=== PATIENT | male | born 1980 | race Caucasian/White ===

== ENCOUNTER 2019-11-14 04:00 | Observation (INO) | payer OTHER, SELFPAY ==
[2019-11-14] VITALS (12 sets, daily range): BP systolic 101–143; BP diastolic 64–89; PULSE 60–110; RESP 14–18; TEMP 36.2–37.4; O2SAT 94–99; BMI 24.3; BMI 24.4
--- NOTE | 2019-11-14 04:06 | CT_ITS ---
STUDY: CT ABDOMEN AND PELVIS WITH CONTRAST REASON FOR EXAM: Male, 39 years old. EPIGASTRIC PAIN AFTER DINNER LAST NIGHT,ELEVATED WBC -- HX:CEREBRAL PALSY RADIATION DOSAGE (If Supplied By Facility): CTDIvol = ( 15.69 ) mGy, DLP = ( 590.99 ) mGycm TECHNIQUE: Transaxial images were obtained from the dome of the diaphragm to the symphysis pubis without oral contrast. IV 100mL Isovue-300 was administered. Sagittal and coronal images were reconstructed. Individualized dose optimization techniques were used for this CT. COMPARISON: None. FINDINGS: The visualized lung bases are unremarkable. The visualized portions of the heart are within normal limits. There is minimal periportal edema. Normal gallbladder and extrahepatic biliary system. There is a 6.6 mm splenic cyst. Normal pancreas. Normal bilateral adrenal glands. There is a right renal cyst measuring 4.2 mm. Normal left kidney. There is a small hiatal hernia. Normal small intestine. There is moderate stool in the colon. The appendix is elongated and distended with multiple appendicoliths. It measures up to 1.0 cm. There are at least 3 appendicoliths demonstrated the largest of which measures 8.8 x 0.6 cm. Is mild surrounding edema. Normal abdominal aorta. Normal inferior vena cava. Normal retroperitoneum. Bladder is distended. There is mild to moderate enlargement appearance of the prostate. Prostate measures 5.7 x 4.2 cm. Normal abdominal wall. There is disc space narrowing L5-S1. There is mild multilevel spondylosis CT/Abdomen/Pelvis W IV Cont ONLY IMPRESSION: Distended appendix with multiple appendicoliths with mild surrounding edema, highly suspicious for acute appendicitis. Constipation. Right renal cyst 4.2 mm. Mild to moderate enlargement of the prostate with inhomogeneity recommend consideration for follow-up prostate laboratory values and clinical exam when appropriate. N.B. : The above information has been verbally conveyed by Beronica Brown MD to Loyd Cordero MD, on 11/14/2019 05:45:13 (ET). Electronically Signed: Beronica Brown MD at 5:46 EDT Tel , Service support ,
--- NOTE | 2019-11-14 04:06 | ED.VIS.GEN ---
History of Present Illness Chief Complaint: Abd Pain Informant: Patient Onset: Today Context: Sudden Onset Timing: Continuous Current Severity: Moderate Maximum Severity: Severe Narrative: The patient is a 39-year-old male with medical history significant for prior hiatal hernia who presents to the emergency department epigastric abdominal pain, nausea, and vomiting. Patient states that his pain began about 10 PM. He states he ate and shortly after began to get a gnawing pain in his midepigastric area. Throughout the night, the pain worsened. He was nauseated and had an episode of vomiting. He states it did not change the pain. He denies any fevers or chills. He has no history of prior abdominal surgery. He denies history of pancreatitis. He has no history of alcohol use. He is not found anything that improve the pain. Prior similar symptoms: No Recent Illness/Hospitalization: No Past Medical History - Allergies and Home Meds Allergies/Adverse Reactions: Allergies No Known Allergies Allergy (Verified 11/14/19 04:11) Prior records reviewed: Yes Past Medical History: None Surgical History: noncontributory Review of Systems General: Denies: Chills, Fever, Sweats Eyes: Denies: Visual changes - bilaterally, Diplopia ENT: Denies: Rhinorrhea, Sore throat Cardiovascular: Denies: Chest pain, Palpitations Respiratory: Denies: Dyspnea, Cough, Dyspnea on exertion Gastrointestinal: Reports: Abdominal pain, Nausea, Vomiting. Denies: Diarrhea, Melena, Hematochezia Genitourinary: Denies: Dysuria, Hematuria, Frequency Musculoskeletal: Denies: Back pain, Extremity Pain Skin: Denies: Rash, Wounds Neurological: Denies: Headache, Weakness, Numbness Physical Exam Vital Signs/Narrative: Vital Signs Temp Pulse Resp BP Pulse Ox 11/14/19 04:02 97.3 F L 72 16 143/89 H 98 Inital Vital Signs reviewed: Yes General: Well nourished, Well developed, No Acute Distress Head: Normocephalic, Atraumatic Eyes: Perrl, EOMI ENT: Moist mucous membranes, No rhinorrhea Neck: Supple, Nontender Cardiovascular: Regular rate, Regular rhythm, No murmurs Respiratory: No distress, CTA bilaterally, Chest nontender Abdomen: Soft, Nondistended, Normal bowel sounds, Tender. Negative for: Guarding, Rebound tenderness Back: Nontender, Normal Inspection Extremities: Nontender, No edema Skin: Normal color, No rash Neurological: Alert, Oriented x3, Cranial nerves II-XII grossly intact, Normal Strength, Normal Sensation Psychological: Normal affect, Normal Mood Diagnostic/Tx/Re-eval Clinical Impression(s) from Imaging Studies Abdomen/Pelvis CT 11/14/19 04:06 IMPRESSION: Distended appendix with multiple appendicoliths with mild surrounding edema, highly suspicious for acute appendicitis. Constipation. Right renal cyst 4.2 mm. Mild to moderate enlargement of the prostate with inhomogeneity recommend consideration for follow-up prostate laboratory values and clinical exam when appropriate. N.B. : The above information has been verbally conveyed by Beronica Brown MD to Loyd Cordero MD, on 11/14/2019 05:45:13 (ET). Electronically Signed: Beronica Brown MD at 5:46 EDT Tel , Service support , ADDENDUM: 11/14/19 0553 IMPRESSION: Distended appendix with multiple appendicoliths with mild surrounding edema, highly suspicious for acute appendicitis. Constipation. Right renal cyst 4.2 mm. Mild to moderate enlargement of the prostate with inhomogeneity recommend consideration for follow-up prostate laboratory values and clinical exam when appropriate. N.B. : The above information has been verbally conveyed by Beronica Brown MD to Loyd Cordero MD, on 11/14/2019 05:45:13 (ET). Electronically Signed: Beronica Brown MD at 5:46 EDT Tel , Service support , Abnormal Lab Results 11/14/19 11/14/19 04:10 04:10 WBC 14.3 H RBC 4.82 Hgb 14.3 Hct 41.3 MCV 85.7 MCH 29.7 MCHC 34.6 RDW Std Deviation 37.9 RDW Coeff of Alejandro 12.1 Plt Count 254 MPV 9.6 Immature Gran % (Auto) 0.300 Neut % (Auto) 85.9 H Lymph % (Auto) 7.4 L Emmons % (Auto) 5.9 Eos % (Auto) 0.4 Baso % (Auto) 0.1 Absolute Neuts (auto) 12.3 H Absolute Lymphs (auto) 1.06 Nucleated RBC % 0 Sodium 137 Potassium 3.5 Chloride 101 Carbon Dioxide 28.0 Anion Gap 8 BUN 15 Creatinine 0.89 Estim Creat Clear Calc 102.12 Est GFR (MDRD) Af Amer 121 Est GFR (MDRD) Non-Af 100 BUN/Creatinine Ratio 16.8 Glucose 148 H Calcium 8.9 Total Bilirubin 0.80 AST 20 ALT 33 Alkaline Phosphatase 47 Total Protein 7.6 Albumin 4.3 Globulin 3.3 Albumin/Globulin Ratio 1.3 Lipase 109 - Medical Decision Making Patient presents with acute abdominal pain. He points to his epigastric area, but he is also tender in his right lower quadrant with some voluntary guarding. IV was established. He was given analgesics with little improvement. I did obtain an EKG which is sinus rhythm without acute ischemia. Screening labs do show leukocytosis, but otherwise unremarkable. The patient underwent CT imaging which does show evidence of acute appendicitis. I did discuss this with surgery who is going to evaluate the patient. He is started on broad-spectrum antibiotics. I did order the rapid COVID test, but the patient outright refused. He states that he has no reason for this. I tried to explain to him that this would keep himself and staff safe, but he still refused the test. I obviously cannot force this on him. This was relayed to the staff. Impression 1. Acute abdominal pain 2. Acute appendicitis
[2019-11-14 04:15] LABS: Absolute Lymphocyte Count 1.06 X10^3/uL (0.83-4.51); Absolute Neutrophil Count 12.3 X10^3/uL (2.0-7.7); Basophil# 0.02 X10^3/uL; Basophil% 0.1 % (0-1); Eosinophil# 0.06 X10^3/uL; Eosinophils% 0.4 % (0-5); Hematocrit 41.3 % (40-54); Hemoglobin 14.3 g/dL (13.0-16.5); Lymphocyte # 1.06 X10^3/ul (4.0); Lymphocyte % 7.4 % (19-41); Mean Corp Hgb Conc 34.6 g/dL (32-36); Mean Corpuscular Hgb 29.7 pg (27.0-32.0); Mean Corpuscular Volume 85.7 fL (80-94); Mean Platelet Vol. 9.6 fl (6.2-12.0); Monocyte# 0.84 X10^3/uL; Monocyte% 5.9 % (0-10); NRBC Flagged by Analyzer 0 % (0-5); Neutrophil # 12.28 X10^3/uL (2.7-7.7); Neutrophil % 85.9 % (47-70); Platelet Count 254 K/mm3 (150-450); RBC Distribution Width CV 12.1 % (11.6-14.6); RBC Distribution Width SD 37.9 fl (35.1-43.9); Red Blood Count 4.82 M/mm3 (4.6-6.2); White Blood Count 14.3 K/mm3 (4.4-11.0)
[2019-11-14] MEDS: Ondansetron 4 MG/2 ML Vial IV ×2 (04:16→12:10)
[2019-11-14] MEDS: 0.9% Normal Saline 1,000 ML 1000 ML IV (04:16)
[2019-11-14] MEDS: Morphine 4 MG/ML Syringe IV ×2 (04:18→04:37)
[2019-11-14 04:33] LABS: ALB/GLOB Ratio 1.3 RATIO (0.9-2.4); AST(SGOT) 20 U/L (15-37); Alanine Aminotransfer ALT/SGPT 33 U/L (16-61); Albumin, Serum 4.3 g/dL (3.2-5.0); Alkaline Phosphatase 47 U/L (45-117); Anion Gap 8 (5-15); BUN 15 mg/dL (7-18); BUN/Creat Ratio 16.8 RATIO (10-20); Calcium,Total 8.9 mg/dL (8.5-10.1); Chloride 101 mmol/L (98-107); Creatinine, Serum 0.89 mg/dL (0.70-1.30); EST Glomerular Filtration Rate 100 mL/min (>60); Est Glom Filt Rate - Afr Amer 121 mL/min (>60); Estimated Creatinine Clearance 102.12 ml/min; Globulin 3.3 g/dL (2.2-4.2); Glucose 148 mg/dL (74-106); Lipase 109 U/L (73-393); Potassium 3.5 mmol/L (3.5-5.1); Protein, Total 7.6 g/dL (6.4-8.2); Sodium Level 137 mmol/L (136-145)
--- NOTE | 2019-11-14 04:50 | EKG12_ITS ---
Test Reason : ABD/ CP Blood Pressure : / mmHG Vent. Rate : 067 BPM Atrial Rate : 067 BPM P-R Int : 148 ms QRS Dur : 104 ms QT Int : 430 ms P-R-T Axes : 080 061 037 degrees QTc Int : 454 ms Normal sinus rhythm with sinus arrhythmia Normal ECG Confirmed by CRISTA CAZARES, MANDIE ([id number]), editor in chief newspaper [employer] ([id number]) on 11/17/2019 9:04:24 AM Referred By: CARLA Confirmed By:PIA TOBIN MD
[2019-11-14] MEDS: Famotidine 200 MG/20 ML MDV 20 MG in 0.9% Normal Saline (Pres. free 8 ML 300 MG IV (05:32)
[2019-11-14] MEDS: Dicyclomine 20 MG/2 ML Vial IM (05:33)
[2019-11-14] MEDS: HYDROmorphone 1 MG/ML Syringe IV (05:39)
--- NOTE | 2019-11-14 06:47 | HP.PCM_ITS ---
History of Present Illness Date of Admission: 11/14/19 The patient is a 39 year old M presents with epigastric pain to the ER and nausea and vomiting starting at suppertime yesterday got worse at midnight. Patient denies any diarrhea. CT abdomen pelvis was consistent with acute appendicitis with multiple appendicoliths in the appendix. Patient denies any history of surgery. Patient was curious about nonoperative treatment of appendicitis. Patient did receive views the COVID test for personal reasons. Past Medical History Allergies No Known Allergies Allergy (Verified 11/14/19 04:11) Surgical History: noncontributory Psychiatric History: No pertinent psych hx Lives: Spouse/ Significant Other Smoking Status: Never smoker - *Family History Maternal History Items: No pertinent history VTE Information - Inpt Only VTE Present on Admission: Yes VTE Mechan Device Prophylaxis: SCD's - Physical Exam Vitals/I&O's: Vital Signs Temp Pulse Resp BP Pulse Ox 99.4 F H 70 16 121/72 H 96 11/14/19 05:44 11/14/19 05:44 11/14/19 05:44 11/14/19 05:44 11/14/19 05:44 Oxygen Delivery Method Room Air Weight: 155 lb 10.342 oz Body Mass Index (BMI) 24.3 Intake and Output for Last 24 Hours 11/12/19 11/13/19 11/14/19 23:59 23:59 23:59 Intake Total 1110 / 1110 Balance 1110 / 1110 General: Alert, Oriented x3, Cooperative, No apparent distress HEENT: Atraumatic Lungs: Normal air movement Cardiovascular: Regular rate Abdomen: Soft, Non-Distended, Tender - Epigastric, positive Rovsing sign left lower quadrant, voluntary guarding, no rebound Extremities: No clubbing, No cyanosis, No edema Neurological: Cranial nerves II-XII grossly intact Psych/Mental Status: Normal Affect Laboratory Results 11/14/19 04:10: WBC 14.3 H, RBC 4.82, Hgb 14.3, Hct 41.3, MCV 85.7, MCH 29.7, M CHC 34.6, RDW Std Deviation 37.9, RDW Coeff of Alejandro 12.1, Plt Count 254, MPV 9.6, Immature Gran % (Auto) 0.300, Neut % (Auto) 85.9 H, Lymph % (Auto) 7.4 L, [place] % (Auto) 5.9, Eos % (Auto) 0.4, Baso % (Auto) 0.1, Absolute Neuts (auto) 12.3 H, Absolute Lymphs (auto) 1.06, Nucleated RBC % 0 // 04:10: Sodium 137, Potassium 3.5, Chloride 101, Carbon Dioxide 28.0, Anion Gap 8, BUN 15, Creatinine 0.89, Estim Creat Clear Calc 102.12, Est GFR (MDRD) Af Amer 121, Est GFR (MDRD) Non-Af 100, BUN/Creatinine Ratio 16.8, Glucose 148 H, Calcium 8.9, Total Bilirubin 0.80, AST 20, ALT 33, Alkaline Phosphatase 47, Total Protein 7.6, Albumin 4.3, Globulin 3.3, Albumin/Globulin Ratio 1.3, Lipase 109 Assessment/Plan 39-year-old male with acute appendicitis with appendicoliths 1. Discussed procedure laparoscopic appendectomy, possible open, possible bowel resection along with the risk but not limited to bleeding, infection/abscess, injury to another organ (small bowel, colon, etc.), adhesion, hernia at incision sites, and anesthesia. Patient stated that he would like to call someone prior to signing consent did not prefer to say who he was calling. Currently he denies having any questions about the procedure. Patient did refuse COVID test for personal reasons. Discussed with patient since he would need surgery even if the test was positive would plan to proceed with surgery. Mikayla Houser M.D. Pager: [phone] [facility] [address] [place] [address], [address] [place] [address] Office: [phone]
--- NOTE | 2019-11-14 07:59 | NURSING ---
Surgery laser beam cutter notified per Primary RN verbalized pt is refusing COVID testing.
[2019-11-14] MEDS: HYDROmorphone 0.5 MG/0.5 ML SYRINGE IV ×2 (09:49→11:57)
[2019-11-14] MEDS: 0.9% Saline Lock 10 ML Syringe IV ×4 (09:49→12:10)
[2019-11-14] MEDS: Lactated Ringers 1,000 ML 130 ML IV (09:57)
[2019-11-14] MEDS: Ketorolac 30 MG/ML Syringe IV (10:56)
--- NOTE | 2019-11-14 11:25 | APP_PTH ---
PATIENT: WAI WYNN LOC: MS3 U#:[id number] AGE/SX: 39/M ROOM: MS314 RE11/14/[address]: Dr. Mikayla Houser MD : 1980 BED: 1 DIS: 11/15/2019 SPEC #: [id number] RECD: 11/14/19 15:55 STATUS: DIANA REQ #: [id number] MARIAH: 11/14/19 11:[address]: Mikayla Houser DEPT: SURGICAL PATHOLOGY RECD BY: Allie Rojo ENTERED: 11/15/19 11:12 SP TYPE: APPENDIX OTHR DR: Dr. Guillaume Pham MD Tissues: Appendix, NOS Procedures: Surgery Specimen Level III HEADER OPERATION: Laparoscopic appendectomy PRE-OP DIAGNOSIS: Acute appendicitis with appendicolith TISSUE SUBMITTED: Appendix MICROSCOPIC DIAGNOSIS Appendix, appendectomy: Acute appendicitis and periappendicitis. FRANCES:cam 11/16/19 MICROSCOPIC DESCRIPTION Slides are reviewed. GROSS DESCRIPTION Received is one container labeled with the patient's name and designated appendix. The specimen consists of a J-shaped appendix measuring 13 cm in length and up to 1.5 cm in diameter. The attached periappendiceal adipose tissue measures up to 1.5 cm in width. No obvious perforation is identified. The serosal surface is covered with cruz, purulent exudate. The lumen contains fecal material mixed with purulent material. No fecalith is identified. [employer] sections are submitted in one cassette. / FRANCES:cam 11/15/19 TC:2 CPT: 41867
[2019-11-14 11:36] LABS: Bacteria 0 SEEN /hpf (None Seen); Mucous, Urine 0 SEEN /hpf (<or=2+); Red Blood Cells-Urine 0 SEEN /hpf (0-5); Squamous Epithelial Cells - UA 0 SEEN /hpf (0-5); White Blood Cells 0 SEEN /hpf (0-5)
[2019-11-14 11:41] LABS: Color, Urine Yellow (Yellow); Glucose, Dipstick 50 mg/dl (Normal); Leukocyte Esterase-Dipstick Negative /ul (Negative); Nitrite-Dipstick Negative (Negative); Occult Blood-Urine Negative /ul (Negative); Protein-Dipstick Negative (Negative); Urine Bilirubin Dipstick Negative (Negative); Urine Clarity Cloudy (Clear); Urine Urobilinogen Normal (Normal)
[2019-11-14 11:45] LABS: Ketone-Dipstick 150 mg/dl (Negative)
[2019-11-14 11:48] LABS: Amorphous Sediment 2+
[2019-11-14] MEDS: Bupiv/Epi 0.5% Mpf 30 ML Vial (14:00)
--- NOTE | 2019-11-14 14:45 | OP.PCM_ITS ---
Report of Operation Date of Procedure: 11/14/19 Pre-Operative Diagnosis: Acute appendicitis Post-Operative Diagnosis: Same Surgery/Procedure Performed:: Laparoscopic appendectomy Type of Anesthesia:: General/Supplemental Anesthesiologist: Diego Brown Special Medications: Zosyn 3.375 g IV x1 Specimen's removed: Appendix Estimated Blood Loss (mL): < 10 cc Fluids Replaced: 600 cc Description of Procedure: Indications: 39-year-old male presented to the ER with new right lower quadrant pain last night. On workup he was found to have acute appendicitis on CT and a leukocytosis of 14. Patient was started on antibiotics in the ER for acute appendicitis-Zosyn IV Description of the procedure: The patient was placed on operating table in supine position. General anesthesia was induced. A timeout was completed verifying correct patient, procedure, position and special equipment prior to be ginning procedure. Abdomen was prepped and draped in usual sterile fashion. Incision was made in the natural skin line above the umbilicus with a 15 blade scalpel. The fascia was elevated and incised. Entry into the peritoneum was confirmed visually and no bowel was noted in the vicinity of the incision. The Zavala trocar was placed under direct vision. Abdomen insufflated with a pressure of 12-15 mmHg. Patient tolerated insertion well. The scope was inserted and the abdomen inspected. No injuries from initial trocar placement were noted. Minimal amount of fluid was seen in the right lower quadrant. An direct visualization 2 -5 mm trocars were placed one above the symphysis pubis and below the hairline and one in the left lower quadrant lateral to the rectus muscle. Care is taken to avoid injury to the bladder and inferior epigastric vessels. The table was placed in Trendelenburg position with the right side elevated. The appendix was grasped with atraumatic grasper and elevated. It was noted to be inflamed with purulent exudate. A window was developed in the mesoappendix at the point between the base of the appendix and the cecum. An endoscopic 45 mm linear cutting stapler blue load was then used to divide and staple the base of the appendix. Enseal was used to divide the mesoappendix The appendix was withdrawn into the Zavala trocar after being placed en doscopically retrieval bag. Appendix was sent to pathology. The appendiceal stump was then irrigated and hemostasis was assured. Fluid was suctioned no other pathology was identified. Secondary trochars were removed under direct visualization. No bleeding was noted trocar sites. The laparoscope withdrawn and the umbilical trocar removed. The abdomen was allowed to collapse. Local anesthesia of 15 mL of 0.5% Marcaine was used at the incision sites. The umbilical trocar site was closed with the [id number] 0 Vicryl suture. The skin was closed up to clear sutures of 4-0 Monocryl and Steri-Strips. The patient was extubated. The patient tolerated the procedure well and was taken to the postanesthesia care unit in satisfactory condition. - Complications none - Admit VTE Documentation VTE Present on Admission: Yes VTE Mechan Device Prophylaxis: SCD's
--- NOTE | 2019-11-14 14:48 | DCINST_ITS ---
Discharge Diet: Light diet - advance as tolerated Discharge Activity: May not drive while taking narcotic pain medications. May shower in (days): 1 Lifting Restrictions: No lifting greater than 20 pounds x 2 weeks no strenuous exercise for 5 wks Call your doctor if your incision/area has: Continuous Slow Oozing, Sudden Increased Bleeding, Increased Pain/ Swelling, Increased Redness, Foul Smelling Discharge, Swelling at the incision site Call your doctor if you observe: Fever of 101 or Higher Remove Dressing in (days):: 1 - Okay to remove OpSite tomorrow after shower, Steri-Strips will stay on for 7 to 10 days with plan to follow-up in 10 days okay to remove Additional Instructions: Okay to take ibuprofen 400-600 mg PO q6hr PRN along with the Percocet. Avoid Tylenol since there is already Tylenol in the Percocet. Take all pain meds with food. Percocet can cause constipation recommend taking daily stool softener (i.e. Colace/docusate) while taking the pain meds. Recommend starting some MiraLAX in 1 to 2 days if no bowel movement. If still no bowel movement the following day recommend taking magnesium citrate half the bottle and waiting 4-6 hours if still no results take the other half the bottle. Medications to take at Discharge Oxycodone HCl/Acetaminophen [Percocet 5/325] 1 - 2 tab PO Q6H PRN PRN 4 Days #20 tab 11/14/19 Allergies/Adverse Reactions: Allergies No Known Allergies Allergy (Verified 11/14/19 04:11) The following prescriptions were given: Oxycodone HCl/Acetaminophen [Percocet 5/325] 1 - 2 tab PO Q6H PRN PRN 4 Days #20 tab PRN Reason: Pain Transmission Status: Received by [facility] Primary Care Physician: Rey Pham MD [Primary Care Provider] - Test Results: Test results from this visit will be discussed in further detail at your follow- up appointment, if applicable. Please Follow Up With: Mikayla Houser MD - After 5 PM and on the weekends call [phone] with any concerns When: Call the office for follow-up appointment in 2 weeks phone versus virtual Proposed Discharge Date: 11/14/19
[2019-11-14] MEDS: Acetaminophen 325 MG Tablet 650 MG PO (20:48)
[2019-11-15] MEDS: oxyCODONE 5 MG Tablet PO ×2 (01:01→06:30)
[2019-11-15 02:43] VITALS: BP 116/67; PULSE 98; RESP 16; TEMP 37.6; O2SAT 97
[2019-11-15] MEDS: 0.9% Saline Lock 10 ML Syringe IV (06:26)
[2019-11-15] MEDS: Acetaminophen 325 MG Tablet 650 MG PO (06:30)
--- NOTE | 2019-11-15 08:42 | PCM.PN.SRG ---
Subjective: Patient sore at incisions, previous pain before surgery has resolved, tolerating p.o. and voiding well - Physical Exam Vitals/I&O's: Vital Signs Temp Pulse Resp BP Pulse Ox 99.6 F H 98 16 116/67 97 11/15/19 02:43 11/15/19 02:43 11/15/19 02:43 11/15/19 02:43 11/15/19 02:43 Oxygen Flow Rate (L/min) 1 Oxygen Delivery Method Room Air Weight: 155 lb 10.342 oz Body Mass Index (BMI) 24.3 Intake and Output for Last 24 Hours 11/13/19 11/14/19 11/15/19 23:59 23:59 23:59 Intake Total 4565 / 4565 2402 / 2402 Output Total 650 / 650 2500 / 2500 Balance 3915 / 3915 -98 / -98 General: Alert, Oriented x3, Cooperative, No apparent distress HEENT: Atraumatic Lungs: Normal air movement Cardiovascular: Regular rate Abdomen: Soft, Non-Distended, Tender - Near incisions clean dry and intact with op sites, no peritoneal signs Laboratory Results 11/14/19 11:25: Urine Color Yellow, Urine Clarity Cloudy, Urine pH 7.0, Ur Specific [place] 1.010, Urine Protein Negative, Urine Glucose (UA) 50 H, Urine Ketones 150 H, Urine Occult Blood Negative, Urine Nitrite Negative, Urine Bilirubin Negative, Urine Urobilinogen Normal, Ur Leukocyte Esterase Negative, Urine RBC 0 SEEN, Urine WBC 0 SEEN, Ur Squamous Epith Cells 0 SEEN, Amorphous Sediment 2+, Urine Bacteria 0 SEEN, Urine Mucus 0 SEEN Current Medications Acetaminophen (Tylenol) 650 mg PO Q6H PRN PRN PRN Reason: Pain Score 1-02/09 Last Admin: 11/15/19 06:30 Dose: 650 mg Documented by: Hydromorphone HCl (Dilaudid Inj) 0.5 - 1 mg IV Q2H PRN PRN PRN Reason: Pain Score 1-10 Last Admin: 11/14/19 11:57 Dose: 1 mg Documented by: Sodium Chloride () 1,000 mls @ 15 mls/hr IV .Q48H LUMA Last Admin: 11/14/19 16:41 Dose: Not Given Documented by: Ondansetron HCl (Zofran) 4 mg IV Q6H PRN PRN PRN Reason: NAUSEA Last Admin: 11/14/19 12:10 Dose: 4 mg Documented by: Oxycodone HCl (Oxyir) 5 - 10 mg PO Q4H PRN PRN PRN Reason: Pain Score 1-10/10 Last Admin: 11/15/19 06:30 Dose: 10 mg Documented by: Sodium Chloride () 10 - 40 ml IV UD PRN PRN Reason: SALINE FLUSH Last Admin: 11/15/19 06:26 Dose: 10 ml Documented by: Medical Necessity - Tobacco Use Smoking Status: Never smoker Assessment/Plan 39-year-old male with acute appendicitis postop day 1 laparoscopic appendectomy 1. Patient is tolerating p.o., pain controlled, ambulating, vital signs stable. Okay to DC home. Mikayla Houser M.D. Pager: [phone] [facility] [address] [place] [address], [address] [place] [address] Office: [phone]
[2019-11-15 09:10] VITALS: BP 114/71; PULSE 79; RESP 18; TEMP 36.8; O2SAT 99
== END 2019-11-15 09:34 | disposition home or self-care (01) ==
LOC: ED 04:49 → SDC 06:19 → MS3 06:39 → SDC 14:07 → MS3 14:10
PROVIDERS: Admitting Provider Surgery; Emergency Provider Emergency Medicine; PCP Family Medicine; Visit Provider Surgery
PROC: 0DTJ4ZZ Resection of Appendix, Percutaneous Endoscopic Approach (ICD-10-PCS; CPT 44970; principal; 2019-11-14 11:05)
DX: K35.80 Unspecified acute appendicitis (principal); K38.1 Appendicular concretions
CPT/HCPCS: 00840; 44970; 74177; 80053; 81001; 83690; 85025; 88304; 93005; 96361; 96365; 96372; 96375; 96376; 99218; 99284; J7030; J7050; J7120; Q9967; A4216; C1760; G0378; J2405; J3490

== ENCOUNTER 2021-08-20 06:34 | Emergency (ER) | payer OTHER, SELFPAY ==
[2021-08-20 06:36] VITALS: BP 139/93; PULSE 79; RESP 17; TEMP 36.8; O2SAT 98; BMI 26.0
--- NOTE | 2021-08-20 06:37 | CT_ITS ---
EXAM: CT ABDOMEN AND PELVIS WITHOUT INTRAVENOUS CONTRAST CLINICAL INDICATION: Kidney Stone TECHNIQUE: Helically acquired images were obtained of the abdomen and pelvis without intravenous contrast. This CT exam was performed using one or more of the following dose reduction techniques: automated exposure control, adjustment of the mA and/or kV according to patient size, and/or use of iterative reconstruction technique. This report was created using [employer] report generation technology. RADIATION DOSE: CTDIvol = 6.13 mGy, DLP = 297.05 mGy-cm. COMPARISON: 11/14/2019 FINDINGS: LOWER THORAX: Unremarkable. Lung bases are clear. No cardiomegaly. No significant pericardial effusion. ABDOMEN: LIVER: Unremarkable. Homogeneous. GALLBLADDER AND BILE DUCTS: Unremarkable. No calcified gallstones. No gallbladder distention or wall edema. No intra- or extrahepatic biliary ductal dilation. PANCREAS: Unremarkable. No focal cystic mass. SPLEEN: Unremarkable. Normal size without focal cystic or solid mass. ADRENALS: Unremarkable. No nodules. KIDNEYS AND URETERS: Mild left hydroureteronephrosis due to a 4 x 2 x 2 mm stone in the distal left ureter. Normal renal size and position. STOMACH AND BOWEL: Unremarkable. No stomach or bowel distention. No focal inflammatory change. PELVIS: APPENDIX: Appendectomy. BLADDER: Unremarkable. REPRODUCTIVE: Unremarkable as visualized. No mass. ABDOMEN and PELVIS: INTRAPERITONEAL SPACE: Unremarkable. No ascites or other fluid collection. No free air. BONES/JOINTS: Unremarkable. No suspicious lytic or blastic abnormality. SOFT TISSUES: Unremarkable. No discrete abdominal or pelvic wall hernia. VASCULATURE: Unremarkable. Abdominal aorta is non-dilated. LYMPH NODES: Unremarkable. No enlarged lymph nodes. CT/Abdomen/Pelvis without Cont IMPRESSION: Mild left hydroureteronephrosis due to a 4 x 2 x 2 mm stone in the distal left ureter. Electronically Signed: Loyd Yu MD at 7:33 EDT ,
--- NOTE | 2021-08-20 06:38 | EDS_ITS ---
HPI <Dr. Jonnie Arenas MD - Last Filed: 08/20/21 06:42> HPI - GI History of Present Illness Chief Complaint: Abd Pain Detail of Chief Complaint: Left-sided abdominal pain rating into the groin Informant: patient Abdominal Pain/Flank Pain Onset: Yesterday Context: Sudden Onset Timing: Continuous and Waxes and wanes Quality: Aching Location: LLQ Current Severity: Moderate Maximum Severity: Severe Worsened by: Nothing Relieved by: Nothing Nausea/Vomiting/Emesis GI Symptom: Positive for Nausea; Negative for Vomiting Diarrhea/Melena/Hematochezia GI Symptom: Negative for Diarrhea, Melena and Hematochezia Associated Symptoms Associated Symptoms: Positive for Frequency and Hematuria; Negative for Dysuria Narrative Narrative: Patient is a 40-year-old healthy male with no stated medical problems who presents because of left-sided abdominal pain that radiates to his groin that started late yesterday. The pain got more intense last evening. He states the pain is constant does vary in its intensity. He cannot find a position of comfort. He has no history of renal ureterolithiasis. There is no known family history of renal ureterolithiasis. He denies history of diverticulosis or diverticulitis. He had frequency and very dark-colored urine. He denies history of liver disease. Prior similar symptoms: No Recent Illness/Hospitalization: No PFSH <Dr. Jonnie Arenas MD - Last Filed: 08/20/21 06:42> PFSH Medical History no medical history no medical history Home Medications hydrocodone-acetaminophen 1 tab PO Q4H PRN 3 Days #14 tab 08/20/21 [Rx Last Taken Unknown] Allergy/AdvReac Type Severity Reaction Status Date / Time No Known Allergies Allergy Verified 08/20/21 06:40 Social History (Updated 08/20/21 @ 06:[address] Jonnie Arenas MD) household members: spouse and family Smoking Status: Never smoker substance use type: does not use ROS <Dr. Jonnie Arenas MD - Last Filed: 08/20/21 06:42> ROS ED Constitutional Constitutional ED: Denies chills, fever(s), subjective, sweats or weight loss ENT ENT ED: Denies ear pain, rhinorrhea or sore throat Cardiovascular Cardiovascular: Denies chest pain, palpitations or racing heartbeat Respiratory/Chest Respiratory/Chest: Denies cough, dyspnea or dyspnea on exertion Gastrointestinal Gastrointestinal: Reports abdominal pain and nausea; Denies constipation, diarrhea, melena or vomiting Genitourinary Genitourinary ED: Reports hematuria, urinary frequency and other Details: Patient does report pain radiating to the left inguinal scrotal area. ; Denies dysuria Musculoskeletal Musculoskeletal: Reports back pain; Denies arthralgias, myalgias or neck pain Integumentary Denies Abrasions or rash Neurologic Neurologic: Denies paresthesias or weakness Hematologic/Lymphatic Hematologic/Lymphatic: Denies easy bleeding or easy bruising EXAM <Dr. Jonnie Arenas MD - Last Filed: 08/20/21 06:42> Physical Exam Const Vital Signs: 08/20/21 06:36 Temperature 98.2 F Temperature Source Temporal Pulse Rate 79 Respiratory Rate 17 Blood Pressure 139/93 H Blood Pressure Mean 108 Pulse Ox 98 Oxygen Delivery Method Room Air Patient appears uncomfortable and fidgety. Positive well nourished and well developed General Appearance ED: well developed; Negative for NAD or pallor HEENT Reports moist mucous membranes normocephalic and atraumatic Eyes PERRL and EOMs intact bilaterally General Eye ED: Negative for pale conjunctiva or scleral icterus Neck no lymphadenopathy, supple and no JVD Resp normal respiratory effort and clear to auscultation bilaterally Cardio regular rate, regular rhythm, S1 normal heart sound, S2 normal heart sound and no murmurs GI non-distended and no masses; Negative for non-tender Inspection: Negative for abdominal distention Auscultation: hypoactive bowel sounds; Negative for normoactive bowel sounds Palpation: soft and tender LLQ; Negative for guarding, rigid, hepatomegaly, splenomegaly, mass, pulsatile mass or rebound tenderness present Back/Spine Negative for no CVA tenderness Thoracic Spine / Upper Back: Negative for thoracic spinal tenderness Lumbar Spine / Lower Back: Negative for lumbar spinal tenderness Extremity full ROM General Extremety ED: Negative for edema or tenderness General Extremity: Negative for edema Neuro CN's II-XII intact bilaterally and moves all extremities Sensorium / Orientation: alert, oriented to person, oriented to place and oriented to time Psych mental status grossly normal and thought process normal Skin no wounds General Skin Exam: Negative for jaundice or pallor Lesions: no lesions Rashes: no rashes <Dr. Pete Powers MD - Last Filed: 08/20/21 08:31> Physical Exam Const Vital Signs: 08/20/21 06:36 Temperature 98.2 F Temperature Source Temporal Pulse Rate 79 Respiratory Rate 17 Blood Pressure 139/93 H Blood Pressure Mean 108 Pulse Ox 98 Oxygen Delivery Method Room Air MDM <Dr. Jonnie Arenas MD - Last Filed: 08/20/21 06:42> [facility] Narrative Medical decision making narrative: With abrupt onset of pain with dark-colored urine suspect patient has renal/ureteral lithiasis with obstruction will obtain UA to assess for infection. BMP to assess renal function and CBC to assess white count and H&H. CT of the abdomen and pelvis without contrast was ordered to evaluate for ureterolithiasis. Since patient has no allergies he was medicated with IV Zofran for his nausea and IV Toradol and morphine for pain control. Lab Data Labs: Laboratory Results - last 24 hr 08/20/21 08/20/21 08/20/21 06:45 06:45 08:09 WBC 8.2 RBC 5.12 Hgb 14.9 Hct 43.8 MCV 85.5 MCH 29.1 MCHC 34.0 RDW Std Deviation 38.1 RDW Coeff of Alejadnro 12.1 Plt Count 317 MPV 9.5 Immature Gran % (Auto) 0.200 Neut % (Auto) 43.7 L Lymph % (Auto) 41.1 H [place] % (Auto) 6.3 Eos % (Auto) 8.1 H Baso % (Auto) 0.6 Absolute Neuts (auto) 3.6 Absolute Lymphs (auto) 3.39 Nucleated RBC % 0 Sodium 139 Potassium 3.5 Chloride 104 Carbon Dioxide 26.0 Anion Gap 9 BUN 17 Creatinine 1.29 Estim Creat Clear Calc 69.74 Est GFR (MDRD) Af Amer 78 Est GFR (MDRD) Non-Af 65 BUN/Creatinine Ratio 13.2 Glucose 139 H Calcium 8.7 Urine Color Yellow Urine Clarity Sl. Cloudy Urine pH 6.0 Ur Specific [place] 1.025 Urine Protein 30 H Urine Glucose (UA) Normal Urine Ketones 150 A* Urine Occult Blood 250 H Urine Nitrite Negative Urine Bilirubin Negative Urine Urobilinogen Normal Ur Leukocyte Esterase Negative Urine RBC 25-50 SEEN Urine WBC 0 SEEN Ur Squamous Epith Cells 0 SEEN Urine Bacteria 1+ Urine Mucus 1+ Radiography Diagnostic Testing: Clinical Impression(s) from Imaging Studies Abdomen/Pelvis CT 08/20/21 06:37 IMPRESSION: Mild left hydroureteronephrosis due to a 4 x 2 x 2 mm stone in the distal left ureter. Electronically Signed: Loyd Yu MD at 7:33 EDT , <Dr. Pete Powers MD - Last Filed: 08/20/21 08:31> [facility] MDM Narrative Medical decision making narrative: I took over the patient's care from the overnight physician. CBC is unremarkable with a white count of 8. H&H of 14 and 43. Electrolytes are unremarkable gap at 9 normal BUN and creatinine. Glucose of 139. CAT scan shows a left 4 x 2 mm distal ureteral stone. Repeat exam patient is doing well at 8:25 AM. Pain is resolving. We have gone over his test results. We are awaiting his urinalysis results. Urinalysis returned showed blood but no signs of infection. Patient be discharged to home. Lab Data Lab results narrative: CBC normal. Chemistry is unremarkable. Normal BUN and creatinine. Normal gap. CAT scan shows a left 4 mm distal ureteral stone Labs: Laboratory Results - last 24 hr 08/20/21 08/20/21 08/20/21 06:45 06:45 08:09 WBC 8.2 RBC 5.12 Hgb 14.9 Hct 43.8 MCV 85.5 MCH 29.1 MCHC 34.0 RDW Std Deviation 38.1 RDW Coeff of Alejandro 12.1 Plt Count 317 MPV 9.5 Immature Gran % (Auto) 0.200 Neut % (Auto) 43.7 L Lymph % (Auto) 41.1 H [place] % (Auto) 6.3 Eos % (Auto) 8.1 H Baso % (Auto) 0.6 Absolute Neuts (auto) 3.6 Absolute Lymphs (auto) 3.39 Nucleated RBC % 0 Sodium 139 Potassium 3.5 Chloride 104 Carbon Dioxide 26.0 Anion Gap 9 BUN 17 Creatinine 1.29 Estim Creat Clear Calc 69.74 Est GFR (MDRD) Af Amer 78 Est GFR (MDRD) Non-Af 65 BUN/Creatinine Ratio 13.2 Glucose 139 H Calcium 8.7 Urine Color Yellow Urine Clarity Sl. Cloudy Urine pH 6.0 Ur Specific [place] 1.025 Urine Protein 30 H Urine Glucose (UA) Normal Urine Ketones 150 A* Urine Occult Blood 250 H Urine Nitrite Negative Urine Bilirubin Negative Urine Urobilinogen Normal Ur Leukocyte Esterase Negative Urine RBC 25-50 SEEN Urine WBC 0 SEEN Ur Squamous Epith Cells 0 SEEN Urine Bacteria 1+ Urine Mucus 1+ Radiography Diagnostic Testing: Clinical Impression(s) from Imaging Studies Abdomen/Pelvis CT 08/20/21 06:37 IMPRESSION: Mild left hydroureteronephrosis due to a 4 x 2 x 2 mm stone in the distal left ureter. Electronically Signed: Loyd Yu MD at 7:33 EDT , Discharge Plan Triage Chief Complaint: Abd Pain ED Provider: Jonnie Arenas Dx/Rx/DC Orders Clinical Impression: Kidney stone on left side Instructions: ED Kidney Stone w/ Colic Prescriptions: New hydrocodone-acetaminophen 5-325 mg tablet 1 tab PO Q4H PRN (Reason: pain) 3 Days Qty: 14 RF: 0 Primary Care Provider: Rey Pham Referrals: Rey Pham MD [Primary Care Provider] - 3-5 Days if not improving Activity Restrictions/Additional Instructions: Plenty of fluids and rest. You have a 4 mm kidney stone down by your bladder. It should pass in the next several hours for the next several days. Once he gets in the bladder your pain will resolve. [place] as needed for pain. This is a narcotic pain medication do not drink or drive with it. Make sure you are drinking plenty of fluids and taking in plenty of fiber to prevent constipation. You may also use Motrin or Advil with it. Disposition Disposition: Home, Self Care
[2021-08-20] MEDS: 0.9% Normal Saline 1,000 ML 250 ML IV (06:47)
[2021-08-20] MEDS: Ketorolac 15 MG/ML Vial IV (06:47)
[2021-08-20] MEDS: Morphine 4 MG/ML Syringe IV ×2 (06:47→07:23)
[2021-08-20 06:55] LABS: Absolute Lymphocyte Count 3.39 X10^3/uL (0.83-4.51); Absolute Neutrophil Count 3.6 X10^3/uL (2.0-7.7); Basophil# 0.05 X10^3/uL; Basophil% 0.6 % (0-1); Eosinophil# 0.67 X10^3/uL; Eosinophils% 8.1 % (0-5); Hematocrit 43.8 % (40-54); Hemoglobin 14.9 g/dL (13.0-16.5); Lymphocyte # 3.39 X10^3/ul (0.83-4.51); Lymphocyte % 41.1 % (19-41); Mean Corpuscular Hgb 29.1 pg (27.0-32.0); Mean Corpuscular Volume 85.5 fL (80-94); Mean Platelet Vol. 9.5 fl (6.2-12.0); Monocyte# 0.52 X10^3/uL; Monocyte% 6.3 % (0-10); NRBC Flagged by Analyzer 0 % (0-5); Neutrophil # 3.59 X10^3/uL (2.7-7.7); Neutrophil % 43.7 % (47-70); Platelet Count 317 K/mm3 (150-450); RBC Distribution Width CV 12.1 % (11.6-14.6); RBC Distribution Width SD 38.1 fl (35.1-43.9); Red Blood Count 5.12 M/mm3 (4.6-6.2); White Blood Count 8.2 K/mm3 (4.4-11.0)
[2021-08-20 07:11] LABS: Anion Gap 9 (5-15); BUN 17 mg/dL (7-18); BUN/Creat Ratio 13.2 RATIO (10-20); Calcium,Total 8.7 mg/dL (8.5-10.1); Chloride 104 mmol/L (98-107); Creatinine, Serum 1.29 mg/dL (0.70-1.30); EST Glomerular Filtration Rate 65 mL/min (>60); Est Glom Filt Rate - Afr Amer 78 mL/min (>60); Estimated Creatinine Clearance 69.74 ml/min; Glucose 139 mg/dL (74-106); Potassium 3.5 mmol/L (3.5-5.1); Sodium Level 139 mmol/L (136-145)
[2021-08-20 08:16] LABS: Squamous Epithelial Cells - UA 0 SEEN /hpf (0-5); White Blood Cells 0 SEEN /hpf (0-5)
[2021-08-20 08:21] LABS: Color, Urine Yellow (Yellow); Glucose, Dipstick Normal (Normal); Leukocyte Esterase-Dipstick Negative /ul (Negative); Nitrite-Dipstick Negative (Negative); Occult Blood-Urine 250 /ul (Negative); Protein-Dipstick 30 mg/dl (Negative); Specific Gravity, Urine 1.025 (1.002-1.030); Urine Bilirubin Dipstick Negative (Negative); Urine Clarity Sl. Cloudy (Clear); Urine Urobilinogen Normal (Normal)
[2021-08-20 08:25] LABS: Ketone-Dipstick 150 mg/dl (Negative)
[2021-08-20 08:27] LABS: Bacteria 1+ /hpf (None Seen); Mucous, Urine 1+ /hpf (<or=2+); Red Blood Cells-Urine 25-50 SEEN /hpf (0-5)
[2021-08-20 08:42] VITALS: BP 127/82; PULSE 73; RESP 15; O2SAT 98
== END 2021-08-20 08:43 | disposition home or self-care (01) ==
PROVIDERS: Emergency Provider Emergency Medicine; PCP Family Medicine; Visit Provider Emergency Medicine
DX: N13.2 Hydronephrosis with renal and ureteral calculous obstruction (principal); R31.9 Hematuria, unspecified
CPT/HCPCS: 74176; 80048; 81001; 85025; 96361; 96374; 96375; 96376; 99285; J7030; A4216

== ENCOUNTER → 2023-08-03 | Outpatient (CLI) | payer SELFPAY ==
[2023-08-03 17:44] LABS: Absolute Lymphocyte Count 2.03 X10^3/uL (0.83-4.51); Absolute Neutrophil Count 6.3 X10^3/uL (2.0-7.7); Basophil# 0.04 X10^3/uL; Basophil% 0.4 % (0-1); Eosinophils% 1.1 % (0-5); Hematocrit 46.9 % (40-54); Hemoglobin 15.8 g/dL (13.0-16.5); Lymphocyte # 2.03 X10^3/ul (0.83-4.51); Lymphocyte % 22.8 % (19-41); Mean Corp Hgb Conc 33.7 g/dL (32-36); Mean Corpuscular Hgb 29.5 pg (27.0-32.0); Mean Corpuscular Volume 87.7 fL (80-94); Mean Platelet Vol. 9.7 fl (6.2-12.0); Monocyte# 0.39 X10^3/uL; Monocyte% 4.4 % (0-10); NRBC Flagged by Analyzer 0 % (0-5); Neutrophil # 6.32 X10^3/uL (2.7-7.7); Platelet Count 319 K/mm3 (150-450); RBC Distribution Width CV 12.2 % (11.6-14.6); RBC Distribution Width SD 39.3 fl (35.1-43.9); Red Blood Count 5.35 M/mm3 (4.6-6.2); White Blood Count 8.9 K/mm3 (4.4-11.0)
[2023-08-03 18:08] LABS: ALB/GLOB Ratio 1.3 RATIO (0.9-2.4); AST(SGOT) 15 U/L (15-37); Alanine Aminotransfer ALT/SGPT 27 U/L (16-61); Albumin, Serum 4.4 g/dL (3.2-5.0); Alkaline Phosphatase 49 U/L (45-117); Anion Gap 7 (5-15); BUN 15 mg/dL (7-18); BUN/Creat Ratio 15.7 RATIO (10-20); Calcium,Total 9.1 mg/dL (8.5-10.1); Chloride 103 mmol/L (98-107); Creatinine, Serum 0.96 mg/dL (0.70-1.30); EST Glomerular Filtration Rate 90 mL/min (>60); Est Glom Filt Rate - Afr Amer 109 mL/min (>60); Globulin 3.5 g/dL (2.2-4.2); Glucose 92 mg/dL (74-106); Iron 73 ug/dL (65-175); Potassium 3.7 mmol/L (3.5-5.1); Protein, Total 7.9 g/dL (6.4-8.2); Sodium Level 137 mmol/L (136-145); Thyroid Stim Hormone (TSH) 2.09 uIU/mL (0.358-3.74)
[2023-08-03 18:09] LABS: Vitamin B12 588 pg/mL (211-911); Vitamin D,25 Hydroxy 28.5 ng/mL
[2023-08-04 12:43] LABS: Erythrocyte Sedimentation Rate 3 mm/hr (0-20)
[2023-08-09 14:08] LABS: Endomysial Antibody IgA Negative (Negative); Immunoglobulin A 163 mg/dL (90-386); t-Transglutaminase IgA 2 U/mL (0-3)
== END | disposition home or self-care (01) ==
PROVIDERS: PCP Family Medicine; Visit Provider Family Medicine
DX: R19.7 Diarrhea, unspecified (principal); R51.9 Headache, unspecified; R53.83 Other fatigue
CPT/HCPCS: 36415; 80053; 82306; 82533; 82607; 82784; 83516; 83540; 84403; 84443; 85025; 85652; 86255

== ENCOUNTER → 2023-11-26 | Outpatient (CLI) | payer SELFPAY ==
[2023-11-26 12:40] LABS: Absolute Lymphocyte Count 1.87 X10^3/uL (0.83-4.51); Absolute Neutrophil Count 3.6 X10^3/uL (2.0-7.7); Basophil# 0.04 X10^3/uL; Basophil% 0.7 % (0-1); Eosinophil# 0.08 X10^3/uL; Eosinophils% 1.3 % (0-5); Hematocrit 46.1 % (40-54); Hemoglobin 15.3 g/dL (13.0-16.5); Lymphocyte # 1.87 X10^3/ul (0.83-4.51); Lymphocyte % 30.8 % (19-41); Mean Corp Hgb Conc 33.2 g/dL (32-36); Mean Corpuscular Hgb 28.8 pg (27.0-32.0); Mean Corpuscular Volume 86.8 fL (80-94); Mean Platelet Vol. 10.6 fl (6.2-12.0); Monocyte# 0.45 X10^3/uL; Monocyte% 7.4 % (0-10); NRBC Flagged by Analyzer 0 % (0-5); Neutrophil # 3.61 X10^3/uL (2.7-7.7); Neutrophil % 59.5 % (47-70); Platelet Count 289 K/mm3 (150-450); RBC Distribution Width SD 38.5 fl (35.1-43.9); Red Blood Count 5.31 M/mm3 (4.6-6.2); White Blood Count 6.1 K/mm3 (4.4-11.0)
[2023-11-26 12:55] LABS: ALB/GLOB Ratio 1.4 RATIO (0.9-2.4); AST(SGOT) 14 U/L (15-37); Alanine Aminotransfer ALT/SGPT 28 U/L (16-61); Albumin, Serum 4.6 g/dL (3.2-5.0); Alkaline Phosphatase 45 U/L (45-117); Anion Gap 6 (5-15); BUN 15 mg/dL (7-18); BUN/Creat Ratio 19.5 RATIO (10-20); Calcium,Total 9.5 mg/dL (8.5-10.1); Chloride 103 mmol/L (98-107); Creatinine, Serum 0.77 mg/dL (0.70-1.30); EST Glomerular Filtration Rate 116 mL/min (>60); Est Glom Filt Rate - Afr Amer 140 mL/min (>60); Globulin 3.2 g/dL (2.2-4.2); Glucose 84 mg/dL (74-106); Potassium 4.3 mmol/L (3.5-5.1); Protein, Total 7.8 g/dL (6.4-8.2); Sodium Level 137 mmol/L (136-145)
== END | disposition home or self-care (01) ==
LOC: LABSPEC 12:23
PROVIDERS: PCP Family Medicine; Referring Provider Nurse Practitioner Family; Visit Provider Nurse Practitioner Family
DX: B60.0 Babesiosis (principal); A68.1 Tick-borne relapsing fever
CPT/HCPCS: 80053; 82955; 85025

== ENCOUNTER → 2024-01-04 | Outpatient (CLI) | payer SELFPAY ==
[2024-01-07 18:08] LABS: G6PD Quant Test 240 (127-427)
== END | disposition home or self-care (01) ==
LOC: LABSPEC 15:28
PROVIDERS: PCP Family Medicine; Referring Provider Nurse Practitioner Family; Visit Provider Nurse Practitioner Family
DX: B60.0 Babesiosis (principal); A68.1 Tick-borne relapsing fever
CPT/HCPCS: 82955